=== PATIENT | female | born 1980 | race Caucasian/White ===

== ENCOUNTER 2017-04-03 04:43 | Outpatient (CLI) | payer MEDICAID | END 2017-04-03 23:59 | disposition home or self-care (01) | LOC: DIABETIC 04:43 | PROVIDERS: ATTEND Surgery | DX: E66.01 Morbid (severe) obesity due to excess calories (principal); I10 Essential (primary) hypertension; K21.9 Gastro-esophageal reflux disease without esophagitis | CPT/HCPCS: 97802 ==

== ENCOUNTER 2017-05-01 05:15 | Outpatient (CLI) | payer MEDICAID | END 2017-05-01 23:59 | disposition home or self-care (01) | LOC: DIABETIC 05:15 | PROVIDERS: ATTEND Surgery | DX: E66.01 Morbid (severe) obesity due to excess calories (principal); I10 Essential (primary) hypertension; K21.9 Gastro-esophageal reflux disease without esophagitis | CPT/HCPCS: 97802 ==

== ENCOUNTER 2017-05-10 16:26 | Emergency (ER) | payer MEDICAID ==
[~2017-05-10] VITALS: Ht 162.6 cm; Wt 113.8 kg
[2017-05-10 16:29] VITALS: BP 153/111
[2017-05-10] MEDS ORDERED: TAM75C PO (17:22)
== END 2017-05-10 17:39 | disposition home or self-care (01) ==
LOC: ER 16:27
DX: J02.9 Acute pharyngitis, unspecified (principal); R05 Cough; R50.9 Fever, unspecified; F17.200 Nicotine dependence, unspecified, uncomplicated; Z79.899 Other long term (current) drug therapy
CPT/HCPCS: 71046; 99284

== ENCOUNTER 2017-06-05 04:41 | Outpatient (CLI) | payer MEDICAID | END 2017-06-05 23:59 | disposition home or self-care (01) | LOC: DIABETIC 04:41 | PROVIDERS: ATTEND Surgery | DX: E66.01 Morbid (severe) obesity due to excess calories (principal); I10 Essential (primary) hypertension; K21.9 Gastro-esophageal reflux disease without esophagitis | CPT/HCPCS: 97802 ==

== ENCOUNTER 2017-06-30 02:49 | Outpatient (CLI) | payer MEDICAID | END 2017-06-30 23:59 | disposition home or self-care (01) | LOC: DIABETIC 02:49 | PROVIDERS: ATTEND Surgery | DX: E66.01 Morbid (severe) obesity due to excess calories (principal); I10 Essential (primary) hypertension; K21.9 Gastro-esophageal reflux disease without esophagitis | CPT/HCPCS: 97802 ==

== ENCOUNTER 2017-08-04 00:26 | Outpatient (CLI) | payer MEDICAID | END 2017-08-04 23:59 | disposition home or self-care (01) | LOC: DIABETIC 00:26 | PROVIDERS: ATTEND Surgery | DX: E66.01 Morbid (severe) obesity due to excess calories (principal); K21.9 Gastro-esophageal reflux disease without esophagitis; I10 Essential (primary) hypertension | CPT/HCPCS: 97802 ==